=== PATIENT | male | born 1960 | race Caucasian/White ===

== ENCOUNTER 2020-01-18 15:23 | Emergency (ER) | payer OTHER ==
--- NOTE | 2020-01-18 15:40 | PDOC ---
Rapid Medical Evaluation Chief Complaint: Rectal Bleed Time Seen by Provider: 01/18/20 15:36 Medical Evaluation: Allergies Allergy/AdvReac Type Severity Reaction Status Date / Time No Known Drug Allergies Allergy Verified 09/09/15 10:19 01/18/20 15:37 CC: rectal bleed x2 months; PMHx- ESRD on HD M-W-F, HTN, IDDM, hemorrhoids. HGb 01/16- 7.7 PE: VSS. AF. Slight pallor to conjunctiva. Orders: labs, guiac, T&S Patient will proceed to ED for evaluation. 01/18/20 15:40 Discharge Disposition - Diagnosis Rectal bleed - Referrals - Patient Instructions - Post Discharge Activity
[2020-01-18 15:50] VITALS: TEMP 98.8; BMI 21.2
--- NOTE | 2020-01-18 16:54 | PDOC ---
History of Present Illness - General Chief Complaint: Rectal Bleed Stated Complaint: SENT BY PCP Time Seen by Provider: 01/18/20 15:36 - History of Present Illness Initial Comments: 01/18/20 16:54 59 y/o M with PMH of Hemorrhoids, HTN, DM, ESRD (MWF) who presents to the ED after dialysis today for rectal bleeding x 2weeks. According to the pt, he has been noticing blood mixed in with the stool initially then after BM, there is an audible stream of blood that filling up the bowl. He denies any associated dizziness, palpitations, nausea, vomiting, abdominal pain, diarrhea/ constipation or recent change in diet except for removal of banana and avocado due to his high potassium level. He solely endorses pain on defecation. He also denies any ASA, NSAIDs, AC use or hx of bleeding disorder. Last colonoscopy was 2-3 years ago which was within normal limit. Pt further mentions HAYS however only when ambulating on an incline. He is able to ambulate on flat grounds for 1km and up the stairs without SOB and denies orthopnea and PND. PMH: as above PSH: L AVF, penile pump, appendectomy Fam Hx: non contributory Social Hx: non smoker, no illicit drug use, social drinker PE: Gen: NAD HEENT: PERRLA, No conjunctival pallor, moist membranes NECK: no JVD or lymphadenopathy CHEST: vesicular breath sounds b/l, no wheezing or rales noted HEART: RRR, 3/6 holocystolic murmur in the left sternal border with systolic murmur in the A and P valve distribution ABDOMEN: +BS, mild chronic LLQ tenderness, soft no HSM RECTAL : flat prolapsed hemorrhoids, no fissures, no external blood/bleeding, pain on finger insertion, internal hemorrhoids palpable, +stool NEURO: AAOx3, motor strength 5/5, sensation intact throughout MSK: no joint pain/tenderness PSYCH: normal affect Assessment: Stable Hemorrhoidal bleed vs diverticular bleed vs less likely UGIB (no melena, no abdominal pain) Plan: CBC, CMP, PT/INR, T&S, FOBT, CT A/P w/o contrast ( HD today) 01/18/20 17:16 CBC,CMP WBC 8.8 K/mm3 (4.0-10.0) 01/18/20 15:55 RBC 2.49 M/mm3 (4.00-5.60) L 01/18/20 15:55 Hgb 7.8 GM/dL (11.7-16.9) L 01/18/20 15:55 Hct 23.3 % (35.4-49) L D 01/18/20 15:55 MCV 93.7 fl (80-96) 01/18/20 15:55 MCH 31.4 pg (25.7-33.7) 01/18/20 15:55 MCHC 33.5 g/dl (32.0-35.9) 01/18/20 15:55 RDW 15.1 % (11.9-15.9) D 01/18/20 15:55 Plt Count 226 K/MM3 (134-434) D 01/18/20 15:55 MPV 10.8 fl (7.5-11.1) 01/18/20 15:55 Absolute Neuts (auto) 6.6 K/mm3 (1.5-8.0) 01/18/20 15:55 Neutrophils % 75.4 % (42.8-82.8) D 01/18/20 15:55 Lymphocytes % 14.2 % (8-40) D 01/18/20 15:55 Monocytes % 8.4 % (3.8-10.2) 01/18/20 15:55 Eosinophils % 1.4 % (0-4.5) 01/18/20 15:55 Basophils % 0.6 % (0-2.0) 01/18/20 15:55 Nucleated RBC % 0 % (0-0) 01/18/20 15:55 Sodium 138 mmol/L (136-145) 01/18/20 15:55 Potassium 4.5 mmol/L (3.5-5.1) 01/18/20 15:55 Chloride 101 mmol/L (98-107) 01/18/20 15:55 Carbon Dioxide 32 mmol/L (21-32) 01/18/20 15:55 Anion Gap 5 MMOL/L (8-16) L 01/18/20 15:55 BUN 4.4 mg/dL (7-18) L 01/18/20 15:55 Creatinine 3.3 mg/dL (0.55-1.3) H 01/18/20 15:55 Est GFR (CKD-EPI)AfAm 22.13 01/18/20 15:55 Est GFR (CKD-EPI)NonAf 19.09 01/18/20 15:55 Random Glucose 150 mg/dL (74-106) H 01/18/20 15:55 Calcium 8.9 mg/dL (8.5-10.1) 01/18/20 15:55 Total Bilirubin 0.4 mg/dL (0.2-1) 01/18/20 15:55 AST 15 U/L (15-37) 01/18/20 15:55 ALT 31 U/L (13-61) 01/18/20 15:55 Alkaline Phosphatase 70 U/L (45-117) 01/18/20 15:55 Total Protein 6.8 g/dl (6.4-8.2) 01/18/20 15:55 Albumin 3.7 g/dl (3.4-5.0) 01/18/20 15:55 Anemic at 7.8/23.3 (10.1 in 2015) , CMP with e/o kidney disease 01/18/20 18:[address] performed. Mild colonic diverticulosis. Bilateral renal atrophy. Mild splenomegaly. There appears to be subtle nonspecific 1 cm left hepatic lobe hypodense focus. 01/18/20 18:56 FOBT negative, Pt stable for discharge with close f/u with GI and to return to ED immediately with any sign of worsening bleeding, abdominal pain, fever, chills, SOB at rest, chest pain, diarrhea. Past History - Past Medical History Allergies/Adverse Reactions: Allergies Allergy/AdvReac Type Severity Reaction Status Date / Time No Known Drug Allergies Allergy Verified 09/09/15 10:19 Home Medications: Ambulatory Orders Amlodipine Besylate [Norvasc -] 10 mg PO DAILY #0 02/25/15 Labetalol HCl [Normodyne -] 300 mg PO BID #0 02/25/15 Insulin Glargine,Hum.rec.anlog [Lantus Solostar PEN -] 15 units SQ HS 09/05/15 Oxycodone HCl/Acetaminophen [Percocet 5/325 -] 1 tab PO Q6H #20 tablet 09/10/15 Anemia: No Asthma: No Cancer: No Cardiac Disorders: No CVA: No COPD: No CHF: No Dementia: (?) Diabetes: Yes Dialysis: Yes (M-W-F) GI Disorders: No Disorders: Yes (KIDNEY FAILURE) HTN: Yes Hypercholesterolemia: No Seizures: No Thyroid Disease: No - Surgical History Appendectomy: Yes - Psycho Social/Smoking Cessation Hx Smoking History: Never smoked Have you smoked in the past 12 months: No Information on smoking cessation initiated: No Hx Alcohol Use: No Drug/Substance Use Hx: No Substance Use Type: None Hx Substance Use Treatment: No Review of Systems - Review of Systems Able to Perform ROS?: Yes Is the patient limited [place] proficient: Yes Constitutional: No: Chills, Fever, Night Sweats, Unexplained wgt Loss HEENTM: No: Recent change in vision Respiratory: Yes: SOB with Exertion Cardiac (ROS): No: Chest Pain, Lightheadedness, Palpitations ABD/GI: Yes: Abd. Pain w/ defecation, Rectal Bleeding. No: Constipated, Diarrhea, Nausea, Vomiting : No: Burning, Dysuria, Hematuria Musculoskeletal: No: Back Pain, Joint Pain Integumentary: No: Change in Color Neurological: No: Headache, Weakness, Dizziness Psychiatric: No: Change in Appetite Endocrine: No: Change in Weight Hematologic/Lymphatic: No: Easy Bleeding, Easy Bruising *Physical Exam - Vital Signs Last Vital Signs Temp Pulse Resp BP Pulse Ox 98.8 F 100 H 18 147/63 100 01/18/20 15:38 01/18/20 15:38 01/18/20 15:38 01/18/20 15:38 01/18/20 15:38 - Physical Exam General Appearance: Yes: Nourished HEENT: positive: EOMI, NUNU, Normal Voice, Symmetrical Neck: positive: Trachea midline, Supple Respiratory/Chest: positive: Lungs Clear, Normal Breath Sounds Cardiovascular: positive: Regular Rhythm, Regular Rate, S1, S2, Murmur, Systolic Murmur Gastrointestinal/Abdominal: positive: Normal Bowel Sounds, Soft Rectal Exam: positive: heme negative stool, normal rectal tone, hemorrhoids. 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 negative: Sensory Deficit ED Treatment Course - LABORATORY CBC & Chemistry Diagram: 01/18/20 15:55 01/18/20 15:55 Discharge - Discharge Information Problems reviewed: Yes Clinical Impression/Diagnosis: Rectal bleed Condition: Improved Disposition: HOME - Admission No - Follow up/Referral - Patient Discharge Instructions Patient Printed Discharge Instructions: DI for Hemorrhoids, DI for Rectal Bleeding Additional Instructions: You came into the emergency room because of blood in your stool. We did imaging of your belly and found some small pocketa in your colon called diverticulosis. it may be the source of you painless bleeding. Since you are not actively bleeding and your blood counts are stable, you are ready for discharge with close follow up with a GI doctor. It is important that you follow up with the Gastro enterologist within one week. I have provided you with some recommendations : you may call Dr Oliveira, Dr Aguilera or Dr Davis for a landcare officer appointment Also follow up with your primary care physician within one week to make sure that your blood count remains stable. - Post Discharge Activity
[2020-01-18 17:00] LABS: BASO % 0.6 % (0-2.0); EOS % 1.4 % (0-4.5); HEMATOCRIT 23.3 % (35.4-49); HEMOGLOBIN 7.8 GM/dL (11.7-16.9); LYMPH % 14.2 % (8-40); MCH 31.4 pg (25.7-33.7); MCHC 33.5 g/dl (32.0-35.9); MEAN CELL VOLUME 93.7 fl (80-96); MEAN PLT VOLUME 10.8 fl (7.5-11.1); MONO % 8.4 % (3.8-10.2); NEUT % 75.4 % (42.8-82.8); PLATELET COUNT 226 K/MM3 (134-434); RBC 2.49 M/mm3 (4.00-5.60); RDW 15.1 % (11.9-15.9); WHITE BLOOD COUNT 8.8 K/mm3 (4.0-10.0)
[2020-01-18 17:06] LABS: ALBUMIN 3.7 g/dl (3.4-5.0); BILIRUBIN,TOTAL 0.4 mg/dL (0.2-1); BLOOD UREA NITROGEN 4.4 mg/dL (7-18); CALCIUM 8.9 mg/dL (8.5-10.1); CREATININE 3.3 mg/dL (0.55-1.3); POTASSIUM 4.5 mmol/L (3.5-5.1); TOT PROT 6.8 g/dl (6.4-8.2)
--- NOTE | 2020-01-18 19:42 | PDOC ---
Documentation entered by Everardo Salcedo SCRIBE, acting as scribe for Lawrence Crow DO. Lawrence Crow DO: This documentation has been prepared by the Matias ghotra Angel, SCRIBE, under my direction and personally reviewed by me in its entirety. I confirm that the documentation accurately reflects all work, treatment, procedures, and medical decision making performed by me. Attending Attestation - Resident Resident Name: Froylan Fischerelle - HPI HPI: 01/18/20 19:49 59 year old male with a medical history of ESRD on HD here today with rectal bleeding. Patient reports that he has a history of hemorrhoids and noted bright red blood in his toilet after a bowel movement and denies any other bleeding. He denies any abdominal pain, nausea, vomiting, diarrhea, or urinary symptoms. - Physicial Exam PE: 01/18/20 19:50 GENERAL: Awake, alert, and fully oriented, in no acute distress HEAD: No signs of trauma EYES: PERRLA, EOMI, sclera anicteric, conjunctiva clear ENT: Auricles normal inspection, hearing grossly normal, nares patent, oropharynx clear without exudates. Moist mucosa NECK: Normal ROM, supple, no lymphadenopathy, JVD, or masses LUNGS: Breath sounds equal, clear to auscultation bilaterally. No wheezes, and no crackles HEART: Regular rate and rhythm, normal S1 and S2, no murmurs, rubs or gallops ABDOMEN: Soft, nontender, normoactive bowel sounds. No guarding, no rebound. No masses RECTAL: no thrombosed hemorrhoids or fissures. No active bleeding or blood in the rectum. Guaiac negative and stool was bright brown. EXTREMITIES: Normal range of motion, no edema. No clubbing or cyanosis. No cords, erythema, or tenderness NEUROLOGICAL: Cranial nerves II through XII grossly intact. Normal speech, normal gait SKIN: Warm, Dry, normal turgor, no rashes or lesions noted. - Medical Decision Making 01/18/20 19:50 Patient is a 59 year old male here for painless rectal bleeding likely due to internal hemorrhoid. Will evaluate for active bleeding, guaiac, hemoglobin, and CT. Will reassess. On reassessment, hemoglobin 7.8, abdomen soft, CT showed diverticulosis, and guaiac negative. Hemoglobin at baseline and there is no indication for transfusion. Since there is no active bleeding will refer to GI and give strict return precautions to the patient.
[2020-01-18 20:12] VITALS: BP 139/76; PULSE 94
== END 2020-01-18 20:07 | disposition home or self-care (01) ==
LOC: JER 15:23
DX: K64.8 Other hemorrhoids (principal); D64.9 Anemia, unspecified; K57.90 Diverticulosis of intestine, part unspecified, without perforation or abscess without bleeding; I12.0 Hypertensive chronic kidney disease with stage 5 chronic kidney disease or end stage renal disease; E11.22 Type 2 diabetes mellitus with diabetic chronic kidney disease; N18.6 End stage renal disease; N17.8 Other acute kidney failure; Z99.2 Dependence on renal dialysis; Z79.4 Long term (current) use of insulin; E78.00 Pure hypercholesterolemia, unspecified
CPT/HCPCS: 36415; 74176-TC; 80053; 82272; 85025; 85044; 86850; 86900; 86901; 99284-25

== ENCOUNTER 2021-08-07 14:04 | Emergency (ER) | payer OTHER ==
[2021-08-07 14:22] VITALS: BP 147/66; PULSE 96; TEMP 98.3; BMI 25.5
[2021-08-07 16:59] LABS: BASO % 0.4 % (0-2.0); EOS % 0.7 % (0-4.5); HEMATOCRIT 24.1 % (35.4-49); HEMOGLOBIN 7.8 GM/dL (11.7-16.9); LYMPH % 10.2 % (8-40); MCH 30.5 pg (25.7-33.7); MCHC 32.6 g/dl (32.0-35.9); MEAN CELL VOLUME 93.5 fl (80-96); MEAN PLT VOLUME 10.5 fl (7.5-11.1); MONO % 7.9 % (3.8-10.2); NEUT % 80.8 % (42.8-82.8); PLATELET COUNT 222 10^3/uL (134-434); RBC 2.58 M/mm3 (4.00-5.60); RDW 18.3 % (11.9-15.9); WHITE BLOOD COUNT 11.7 K/mm3 (4.0-10.0)
[2021-08-07 17:08] LABS: INR 0.94 (0.83-1.09); PROTHROMBIN TIME (PATIENT) 11.6 SEC (9.7-13.0)
[2021-08-07 17:18] LABS: CHLORIDE 100 mmol/L (98-107); SODIUM 138 mmol/L (136-145)
[2021-08-07 17:20] LABS: ALBUMIN 3.5 g/dl (3.4-5.0); CALCIUM 8.7 mg/dL (8.5-10.1)
[2021-08-07 17:21] LABS: ANION GAP 6 MMOL/L (8-16); BLOOD UREA NITROGEN 9.7 mg/dL (7-18); CO2 32 mmol/L (21-32); GLUCOSE,RANDOM 218 mg/dL (74-106)
[2021-08-07 17:24] LABS: CREATININE 4.7 mg/dL (0.55-1.3); SGOT/AST 9 U/L (15-37); SGPT/ALT 16 U/L (13-61)
[2021-08-07 17:25] LABS: BILIRUBIN,TOTAL 0.4 mg/dL (0.2-1); TOT PROT 6.9 g/dl (6.4-8.2)
[2021-08-07 17:26] LABS: ALK PHOS 77 U/L (45-117)
== END 2021-08-07 18:27 | disposition home or self-care (01) ==
LOC: JER 14:04
DX: D64.9 Anemia, unspecified (principal); K64.8 Other hemorrhoids
CPT/HCPCS: 36415; 71046-TC-FY; 80053; 82550; 84484; 85025; 85610; 86850; 86900; 86901; 93005; 93010; 99284-25; C9803; U0003; U0005

== ENCOUNTER 2024-08-05 15:35 | Emergency (ER) | payer OTHER ==
[2024-08-05 15:42] VITALS: RESP 18; TEMP 97.7; BMI 21.2
[2024-08-05] MEDS: SODIUM CHLORIDE 0.9% 500 ML INFUS.BAG IV ONE ×2 (17:11→19:07)
[2024-08-05 17:15] LABS: BASO % 0.2 % (0-2.0); EOS % 0.6 % (0-4.5); HEMATOCRIT 35.7 % (35.4-49); HEMOGLOBIN 11.8 GM/dL (11.7-16.9); LYMPH % 9.4 % (8-40); MCH 29.2 pg (25.7-33.7); MEAN CELL VOLUME 88.4 fl (80-96); MEAN PLT VOLUME 10.9 fl (7.5-11.1); MONO % 5.1 % (3.8-10.2); NEUT % 84.7 % (42.8-82.8); PLATELET COUNT 181 10^3/uL (134-434); RBC 4.04 M/mm3 (4.00-5.60); RDW 13.6 % (11.9-15.9); WHITE BLOOD COUNT 12.2 K/mm3 (4.0-10.0)
[2024-08-05 17:33] LABS: POTASSIUM 4.5 mmol/L (3.5-5.1)
[2024-08-05 17:35] LABS: CALCIUM 9.1 mg/dL (8.5-10.1)
[2024-08-05 17:36] LABS: BLOOD UREA NITROGEN 23.8 mg/dL (7-18)
[2024-08-05 17:39] LABS: CREATININE 1.7 mg/dL (0.55-1.3)
[2024-08-05 17:40] LABS: BILIRUBIN,TOTAL 1.9 mg/dL (0.2-1)
[2024-08-05 17:41] LABS: TOT PROT 6.7 g/dl (6.4-8.2)
[2024-08-05 17:44] LABS: N-TERMINAL BNP 897.6 pg/ml (5-125)
[2024-08-05 18:33] LABS: HIV INTERPRETATION NEGATIVE (NEGATIVE)
[2024-08-05 19:09] VITALS: PULSE 66
[2024-08-05 20:41] LABS: POTASSIUM 4.2 mmol/L (3.5-5.1)
[2024-08-05 20:43] LABS: BLOOD UREA NITROGEN 21.2 mg/dL (7-18); CALCIUM 8.4 mg/dL (8.5-10.1)
[2024-08-05 20:44] VITALS: BP 136/62
[2024-08-05 20:47] LABS: CREATININE 1.4 mg/dL (0.55-1.3)
== END 2024-08-05 21:13 | disposition home or self-care (01) ==
LOC: JER 15:35
DX: I95.9 Hypotension, unspecified (principal)
CPT/HCPCS: 36415; 71046-TC-FY; 80048; 80053; 83880; 84484; 85025; 86803; 87389; 93005; 93010; 99285-25

== ENCOUNTER 2025-07-01 14:29 | Emergency (ER) | payer OTHER ==
[2025-07-01 14:34] VITALS: BP 177/65; PULSE 69; RESP 20; TEMP 98.2; BMI 21.2
[2025-07-01] MEDS ORDERED: FAMOTIDINE 20 MG/50 ML IVPB 20 MG/50 ML MG IVPB ONE (15:28)
[2025-07-01] MEDS ORDERED: ACETAMINOPHEN INJECTION 100 ML ONE (15:28)
[2025-07-01] MEDS ORDERED: MAG HYDROX/AL HYDROX/SIMETH 30 ML UNIT-DOSE CUP ONE (15:28)
[2025-07-01] MEDS: FAMOTIDINE 20 MG/50 ML IVPB 20 MG/50 ML MG IVPB ONE (15:50)
[2025-07-01] MEDS: MAG HYDROX/AL HYDROX/SIMETH 30 ML UNIT-DOSE CUP PO ONE (15:50)
[2025-07-01] MEDS: ACETAMINOPHEN 1000 MG/100 ML BAG IVPB ONE (15:50)
[2025-07-01 16:07] LABS: MCHC 31.6 g/dl (32.3-36.5); MEAN CELL VOLUME 88.6 fl (79.0-92.2); MEAN PLT VOLUME 13.2 fl (9.4-12.4); RDW 14.6 % (12.2-16.4)
[2025-07-01 16:26] LABS: CO2 28.0 mmol/L (21-32); GLUCOSE,RANDOM 283.0 mg/dL (74-106)
[2025-07-01 16:29] LABS: CREATININE 1.6 mg/dL (0.55-1.3); INR 1.09 (0.83-1.09); PROTHROMBIN TIME (PATIENT) 12.0 SEC (9.7-13.0); SGOT/AST 7.0 U/L (15-37); SGPT/ALT 16.0 U/L (13-61)
[2025-07-01 16:31] LABS: TOT PROT 7.0 g/dl (6.4-8.2)
[2025-07-01 16:32] LABS: ACTIVATED PTT 33.1 SECONDS (25.2-36.5); ALK PHOS 393.0 U/L (45-117)
[2025-07-01 16:34] LABS: N-TERMINAL BNP 480.8 pg/ml (5-125)
[2025-07-01 17:17] LABS: HIV INTERPRETATION NEGATIVE (NEGATIVE)
[2025-07-01 17:22] LABS: HCV DIAGNOSTIC IN-HOUSE W/RFLX NON-REACTIVE (NONREACTIVE)
== END 2025-07-01 19:07 | disposition home or self-care (01) ==
LOC: JER 14:29
PROC: 3E033GC Introduction of Other Therapeutic Substance into Peripheral Vein, Percutaneous Approach (ICD-10-PCS; principal; 2025-07-01)
PROC: 3E033NZ Introduction of Analgesics, Hypnotics, Sedatives into Peripheral Vein, Percutaneous Approach (ICD-10-PCS; 2025-07-01)
DX: R07.89 Other chest pain (principal)
CPT/HCPCS: 36415; 71046-TC-FY; 80053; 83735; 83880; 84100; 84484; 85025; 85610; 85730; 86803; 87389; 93005; 93010; 99285-25

== ENCOUNTER 2025-07-12 20:16 | Emergency (ER) | payer OTHER ==
[2025-07-12 20:21] VITALS: RESP 18; TEMP 98.1; BMI 22.0
[2025-07-12 23:24] LABS: MONOCYTE % 10.9 % (5.3-12.2); RDW 14.4 % (12.2-16.4)
[2025-07-12 23:25] LABS: ABSOLUTE IMMATURE GRANULOCYTES 0.20 x10^3/uL (0.0-0.031); BASOPHILS # 0.03 x10^3/uL (0.01-0.08); EOSINOPHIL % 3.1 % (0.8-7.0); EOSINOPHILS # 0.25 x10^3/uL (0.04-0.54); MCHC 30.6 g/dl (32.3-36.5); MEAN CELL VOLUME 90.2 fl (79.0-92.2); MEAN PLT VOLUME 12.5 fl (9.4-12.4); MONOCYTE # 0.87 x10^3/uL (0.30-0.82)
[2025-07-13 00:28] LABS: GLUCOSE,RANDOM 227.0 mg/dL (74-106); TOT PROT 7.4 g/dl (6.4-8.2)
[2025-07-13 00:30] LABS: CO2 22.0 mmol/L (21-32)
[2025-07-13 00:31] LABS: ALK PHOS 477.0 U/L (40-150)
[2025-07-13 00:34] LABS: CREATININE 1.62 mg/dL (0.55-1.3); SGOT/AST 17.0 U/L (5-34); SGPT/ALT 10.0 U/L (0-55)
[2025-07-13 00:57] VITALS: BP 158/72; PULSE 70
[2025-07-13 02:19] LABS: HCV DIAGNOSTIC IN-HOUSE W/RFLX NON-REACTIVE (NONREACTIVE); HIV INTERPRETATION NEGATIVE (NEGATIVE)
== END 2025-07-13 00:57 | disposition home or self-care (01) ==
LOC: JER 20:16
DX: M25.571 Pain in right ankle and joints of right foot (principal); M25.471 Effusion, right ankle; M79.661 Pain in right lower leg; M79.81 Nontraumatic hematoma of soft tissue
CPT/HCPCS: 36415; 73610-TC-RT-FY; 73630-TC-RT-FY; 80053; 85025; 86803; 87389; 93971-TC-RT; 99284-25